=== PATIENT | male | born 1965 | race Caucasian/White ===

== ENCOUNTER 2019-12-25 01:17 | Observation (INO) | payer BC, SELFPAY ==
[2019-12-25] VITALS (12 sets, daily range): BP systolic 140–183; BP diastolic 77–108; PULSE 69–82; RESP 15–20; TEMP 35.7–36.3; O2SAT 95–97; BMI 28.0
--- NOTE | 2019-12-25 | EST_ITS ---
Patient Info Name: Nils Villanueva Age: 54 years : 1965 Gender: Male Ht: 75 in Wt: 224 lbs BSA: 2.33 m2 Exam Date: 12/25/2019 12:03 PM Exam Location: [facility] Stress Patient Status: Inpatient Admit Date: 12/25/2019 Staff Ordering Physician: Sedrick Watson MD Attending Provider: Megan Belle DO Exercise Technologist: Joseph Booth RDCS, RT Exercise Physician: Zachary Pina DO Exam Type: CA stress roxane w NM Study Info A regadenoson stress test was performed. Summary 1. 1. Negative lexiscan stress test for ischemic ST changes by ECG criteria. 2. 2. Baseline hypertension. 3. 3. Nuclear scan to follow and will be reported separately. Please correlate with it. 4. 4. Patient informed of the above results. Protocol: Lexiscan Stress ECG Details Stage: REST Duration (min): 1 min : 25 sec HR (bpm): 79 SBP (mmHg): 159 DBP (mmHg): 91 Stage: REST Duration (min): 8 min : 31 sec HR (bpm): 76 SBP (mmHg): 159 DBP (mmHg): 91 Stage: STAGE 1 Duration (min): 0 min : 59 sec HR (bpm): 96 SBP (mmHg): 162 DBP (mmHg): 98 Stage: RECOVERY Duration (min): 1 min : 0 sec HR (bpm): 98 SBP (mmHg): 162 DBP (mmHg): 98 Stage: RECOVERY Duration (min): 2 min : 0 sec HR (bpm): 93 SBP (mmHg): 162 DBP (mmHg): 98 Stage: RECOVERY Duration (min): 3 min : 0 sec HR (bpm): 89 SBP (mmHg): 154 DBP (mmHg): 75 Stage: RECOVERY Duration (min): 3 min : 20 sec HR (bpm): 90 SBP (mmHg): 154 DBP (mmHg): 75 Rest HR: 76 bpm Peak HR: 104 bpm Rest Sys BP: 159 mmHg Peak Sys BP: 162 mmHg Max Pred HR: 164 bpm % Max Pred HR: 63 % Target HR: 139 bpm Max RPP: 16,848 bpm*mmHg Termination Reason: Completed protocol Cardiac Symptoms: Shortness of breath Total Time: 1 min : 0 sec Rest Whitt BP: 91 mmHg Peak Whitt BP: 98 mmHg Total Dose: 0.4 mg Resting ECG Sinus rhythm. Stress ECG No ST changes. Arrhythmias None. Report Signatures
--- NOTE | ~2019-12-25 | XR_ITS ---
EXAMINATION: XR chest 1V portable DATE: 12/25/2019 02:47 INDICATION: 18 hours of chest pain TECHNIQUE: frontal view of the chest was obtained. COMPARISON: None FINDINGS: The lungs are clear with no focal airspace opacities, pulmonary edema, pleural effusion or pneumothor ax. The cardiomediastinal silhouette is normal. Postoperative change of prior right rotator cuff tear and distal clavicle resection. IMPRESSION: 1. No acute cardiopulmonary disease. Reviewed, dictated and finalized at location A.
--- NOTE | ~2019-12-25 | NM_ITS ---
EXAMINATION: NM roxane stress w perfusion DATE: 12/25/2019 13:05 INDICATION: Chest pain TECHNIQUE: Rest images were obtained following intravenous administration of 9.44 mCi Tc99m tetrofosm in (Myoview). The patient was infused intravenously with Lexiscan (Regadenoson). Then, 28.6 mCi Tc99m tetrofosmin (Myoview) was administered intravenously, and stress images were obtained. Data was genny nstructed into short axis and horizontal and vertical long axis SPECT images. Gated SPECT images were also obtained. COMPARISON: None. FINDINGS: There is no definite reversible or fixed perfusion abnormality to suggest ischemia or infar ction. There is normal left ventricular chamber size, wall motion and ejection fraction. Left ventr icular ejection fraction measures 61%. IMPRESSION: 1. Normal myocardial perfusion at rest and during stress. 2. Left ventricular ejection fraction measuring 61%. Reviewed, dictated and finalized at location A.
--- NOTE | 2019-12-25 01:26 | ECG_ITS ---
Measurements Intervals [place] Rate: 73 P: 53 [place]: 155 QRS: 8 QRSD: 99 T: 31 QT: 357 QTc: 395 Interpretive Statements SINUS RHYTHM BASELINE ARTIFACT- I, II, III, AVR, AVL, AVF, V1 NORMAL ECG Electronically Signed On 12-25-2019 6:46:40 CDT by Zachary Pina D.O.
[2019-12-25] MEDS: ASPIRIN 81 MG CHEWABLE TABLET 324 MG PO (01:33)
--- NOTE | 2019-12-25 01:35 | ED.CHESTPAIN ---
HPI - Chest Pain General Chief Complaint: Chest Pain Stated Complaint: Chest pain Time Seen by Provider: 12/25/19 01:20 Source: patient Mode of arrival: ambulatory Limitations: no limitations History of Present Illness HPI narrative: Patient is a 54-year-old male complaining of chest pain, midsternal, 2 on a time, tightness, nonradiating started today. Denies any shortness of breath, nausea, diaphoresis, abdominal pain or fever. Related Data Allergies Allergy/AdvReac Type Severity Reaction Status Date / Time No Known Allergies Allergy Verified 12/25/19 01:26 Review of Systems Review of Systems: All systems reviewed & are unremarkable except as noted in HPI and below Constitutional: Constitutional: Denies body ache(s), Denies chills, Denies excessive sweating, Denies fatigue, Denies fever(s), Denies headache(s), Denies lethargy, Denies malaise, Denies weakness and Denies weight loss Eyes: Eyes: Denies blurry vision, Denies change in vision and Denies loss of vision ENT: Denies dizziness, Denies ear discharge, Denies headache(s), Denies lip swelling, Denies epistaxis, Denies nasal congestion, Denies neck pain, Denies throat swelling and Denies tongue swelling Cardiovascular: Cardiovascular: Denies diaphoresis, Denies rapid heart rate, Denies edema, Denies irregular heart rhythm, Denies lightheadedness, Denies palpitations, Denies dyspnea and Denies dyspnea on exertion Respiratory: Respiratory: Denies chest congestion, Denies cough, Denies hemoptysis, Denies dyspnea and Denies dyspnea on exertion Gastrointestinal: Gastrointestinal: Denies abdominal pain, Denies melena, Denies hematochezia, Denies diarrhea, Denies nausea, Denies vomiting and Denies hematemesis Musculoskeletal: Musculoskeletal: Denies abnormal gait, Denies deformity, Denies joint swelling, Denies limited range of motion, Denies neck pain and Denies numbness Neurologic: Denies Abnormal speech present, Denies abnormal gait, Denies confusion, Denies dizziness, Denies headache(s), Denies focal weakness, Denies loss of vision, Denies numbness, Denies Other visual disturbances, Denies Sensory deficit (Neuro) and Denies weakness Psychiatric: Psychiatric: Denies confusion, Denies depression, Denies auditory hallucinations, Denies homicidal ideation and Denies suicidal ideation Endocrine: Endocrine: Denies cold intolerance, Denies excessive sweating, Denies fatigue, Denies heat intolerance and Denies palpitations Hematologic/Lymphatic: Hematologic/Lymphatic: Denies easy bleeding and Denies easy bruising Allergic/Immunologic: Allergic/Immunologic: Denies lip swelling, Denies throat swelling and Denies tongue swelling PMFSH Family History Family History Father Diabetes mellitus Hypertension Family history of malignant neoplasm Social History Social History Smoking status: Former smoker Smoking end date: 03/06/15 Exam Const: General: cooperative, healthy appearing, comfortable, no acute distress, well developed, alert and awake; No confusion Orientation/consciousness: oriented to person, oriented to place, oriented to time, patient oriented x3 and No confusion Limitations: no limitations HENMT: Head: normal to inspection, normocephalic and atraumatic Ears: hearing grossly normal bilaterally, TM normal on the right and TM normal on the left General nose exam: Normal external nose present, Normal nares present and No nasal discharge present Face and sinus: normal facial exam Mouth: Yes Normal oral and palatal mucosa present, Yes lip normal, Yes tongue normal and Yes oropharynx normal Throat: posterior oropharynx normal, tonsils normal and uvula midline Eyes: General: appearance normal, both eyes and all related structures Pupils: Equal, round and reactive pupils present EOM: EOMs intact bilaterally Neck: Neck: normal visual inspection, full ROM, no ly
[2019-12-25 01:38] LABS: Basophils Absolute Auto 0.1 K/mm3 (0.0-0.1); Basophils Percent Auto 0.7 % (0.2-1.2); Eosinophils Absolute Auto 0.7 K/mm3 (0-0.3); Eosinophils Percent Auto 6.5 % (0-4.4); Hematocrit 43.5 % (42.0-52.0); Immature Granulocyte Absolute 0.02 K/mm3 (0.00-0.031); Immature Granulocyte Percent A 0.2 % (0-0.5); Lymphocytes Percent Auto 40.9 % (18.3-44.2); Mean Corpuscular HGB Conc 34.5 g/dl (32-36); Mean Corpuscular Hemoglobin 32.1 pg (26-34); Mean Corpuscular Volume 92.9 fl (80-100); Mean Platelet Volume 11.6 fl (7.4-10.4); Monocytes Absolute Auto 0.8 K/mm3 (0.1-0.6); Monocytes Percent Auto 7.4 % (2.6-8.5); Neutrophils Absolute Auto 4.9 K/mm3 (1.3-6.7); Neutrophils Percent Auto 44.3 % (45.5-73.1); Platelet Count Result 236 k/mm3 (150-375); Red Blood Count 4.68 M/mm3 (4.6-6.20); Red Cell Distribution Width 12.9 % (11.5-14.5)
[2019-12-25] MEDS: NITROGLYCERIN OINTMENT 1 INCH DOSE TRANSDERM (01:38)
--- NOTE | 2019-12-25 01:43 | PC.NURSE ---
Report given to TONY Jackson
[2019-12-25 01:48] LABS: INR 0.9; Partial Thromboplastin Time 26.5 SECONDS (22.3-36.8); Prothrombin Time 11.8 Seconds (11.1-14.7)
[2019-12-25 01:50] LABS: Alanine Aminotransferase 36 U/L (4-50); Albumin Level 4.3 g/dL (3.5-5.1); Alkaline Phosphatase 52 U/L (38-126); Anion Gap 10 mmol/L (8-16); Aspartate Amino Transferase 42 U/L (17-59); Bilirubin,Total 0.4 mg/dL (0.2-1.3); Blood Urea Nitrogen 19 mg/dL (9-20); Calcium 9.3 mg/dL (8.4-10.2); Carbon Dioxide 25 mmol/L (22-30); Chloride 104 mmol/L (98-107); Estimated Glomerular Filt Rate > 60; Glucose 114 mg/dL (75-110); Potassium 4.1 mmol/L (3.4-5.0); Sodium 139 mmol/L (137-145)
[2019-12-25 01:56] LABS: Atypical Lymphocytes Present; Platelet Estimate Adequate (Adequate)
[2019-12-25 01:59] LABS: NT Pro B Type Natriuretic Pept 26 PG/ML (5-100)
[2019-12-25 02:03] LABS: Troponin I < 0.012 ng/mL (0.000-0.034)
[2019-12-25] MEDS: hydrALAZINE HCL 20 MG/ML VIAL 10 MG IV PUSH (03:51)
--- NOTE | 2019-12-25 03:51 | PC.NURSE ---
This patient, Nils Villanueva, was admitted to IMU Room 214-01 on 12/25/19 at 0320. Patient/family oriented to hospital policies and general routines including ID bracelet, bed and alarms, visiting hours, pain management, procedures, bathroom and other care routines, personal items, smoking policy, room service/diet, and visiting hours. Information on how to activate the Rapid Response Team has been discussed. Patient/Family are encouraged to report perceived risks to care and to ask questions if they do not understand what they are told or what they should do.
[2019-12-25] MEDS: NITROGLYCERIN SL 0.4 MG TABLET SUBLINGUAL (05:00)
--- NOTE | 2019-12-25 05:09 | PM.IMHP ---
H&P: HPI History of Present Illness Date/Time: 12/25/19 05:09 Chief complaint: CHEST PAIN Narrative: Nils Villanueva is a 54 year old male hypertension, history of nicotine abuse, hyperlipidemia, GERD presents ED with complaints of chest pressure. the symptoms started on Monday morning around 9:00 a.m. 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 The symptoms have not resolved and the pressure is a constant smoldering. He has never had a stress test before. He was on Wellbutrin to quit smoking, quit 3 years ago and continued to take the Wellbutrin. he denies any chest trauma, cough, fevers, chills, nausea, vomiting, diarrhea. He denies any sick contacts or recent travels. In the ED: Vital signs stable, lab work within normal limits, EKG: Normal sinus rhythm rate [address] changes. patient admitted for observation for chest pain. Review of Systems Review of Systems: Narrative: Constitutional: No Fever, No Chills, No Night Sweats, No Fatigue ENT/Mouth: No Hearing Changes, No Ear Pain, No Nasal Congestion, No Sinus Pain, No Hoarseness, No sore throat, No Rhinorrhea, No Swallowing Difficulty Eyes: No Eye Pain, No Redness, No Vision Changes Cardiovascular: No Palpitations, No Dyspnea on Exertion, No Orthopnea, No Claudication, No Edema. Endorses chest pressure/pain/ heaviness Respiratory: No Cough, No Sputum, No Wheezing, No Shortness of Breath Gastrointestinal: No Nausea, No Vomiting, No Diarrhea, No Constipation, No Abdominal Pain, No Heartburn, No Hematochezia, No Melena Genitourinary: No Dysuria, No Urinary Frequency, No Hematuria, No Urinary Incontinence, No Urgency Musculoskeletal: No Arthralgias, No Myalgias, No Joint Swelling, No Joint Stiffness, No Back Pain Skin: No Skin Lesions, No Pruritis, No Hair Changes Neuro: No Weakness, No Numbness, No Paresthesias, No Loss of Consciousness, No Syncope, No Dizziness, No Headache Psych: No Anxiety/Panic, No Depression, No Insomnia Heme: No Bruising, No Bleeding Lymph: No Adenopathy Endocrine: No Polyuria, No Polydipsia, No Temperature Intolerance [facility] Past Medical History Medical History (Updated 12/25/19 @ 05:53 by Megan Belle DO) GERD (gastroesophageal reflux disease) HTN (hypertension) Hyperlipidemia Nicotine dependence in remission Family History Family History Father Diabetes mellitus Hypertension Family history of malignant neoplasm Social History Social History Smoking packs per day: 1.5 Smoking cigarettes per day: 30.0 Years smoked: 30 Smoking pack-years: 45.00 Smoking status: Former smoker Tobacco type: cigarettes Smoking end date: 03/06/15 Alcohol intake: current Drinks per week: 12 Substance use: never Spiritual care concerns: No Meds Home Medications and Allergies Home Medications Medication Instructions Recorded Confirmed Type Adult Multivitamin Extra VitD3 See Rx Instructions .ROUTE .COMPLEX 12/25/19 12/25/19 History aspirin [Adult Aspirin] 81 mg PO DAILY 12/25/19 12/25/19 History atorvastatin 20 mg PO DAILY 12/25/19 12/25/19 History bupropion HCl 300 mg PO DAILY 12/25/19 12/25/19 History lisinopril 40 mg PO DAILY 12/25/19 12/25/19 History pantoprazole 20 mg PO DAILY 12/25/19 12/25/19 History testosterone cypionate See Rx Instructions .ROUTE .COMPLEX 12/25/19 12/25/19 History Allergies Allergy/AdvReac Type Severity Reaction Status Date / Time No Known Allergies Allergy Verified 12/25/19 01:26 Vital Signs Vital Signs - 24 hr 12/25/19 01:20 12/25/19 01:41 12/25/19 02:00 Temperature 36.3 C L Pulse Rate 73 69 69 Respiratory Rate 17 15 Blood Pressure 183/107 H 151/96 H Pulse Oximetry 97 96 12/25/19 02:30 12/25/19 03:20 12/25/19 03:56 Temperature 35.7 C L Pulse Rate 70 72 72 Respiratory Rate 16 18
[2019-12-25 05:12] LABS: Cholesterol 151 mg/dL (0-200); HDL Direct 39 mg/dL; Triglycerides 223 mg/dL (<150)
[2019-12-25 05:23] LABS: LDL Cholesterol Direct 75 mg/dL
[2019-12-25 05:24] LABS: Troponin I < 0.012 ng/mL (0.000-0.034)
[2019-12-25 08:30] LABS: Troponin I < 0.012 ng/mL (0.000-0.034)
--- NOTE | 2019-12-25 12:03 | PC.NURSE ---
1145- to [facility] for [place]
[2019-12-25] MEDS: buPROPion HCL XL (24 HR) 150 MG TABCR 300 MG PO (13:06)
[2019-12-25] MEDS: lisinopriL 20 MG TABLET 40 MG PO (13:08)
[2019-12-25] MEDS: ASPIRIN 81 MG CHEWABLE TABLET PO (13:08)
[2019-12-25] MEDS: ATORVASTATIN 20 MG TABLET PO (13:08)
[2019-12-25] MEDS: PANTOPRAZOLE SOD SESQUIHYDRATE 20 MG TAB PO (13:09)
--- NOTE | 2019-12-25 18:43 | PM.DS ---
DS: Admitting Diagnosis Admitting Diagnosis Admitting Diagnosis: CHEST PAIN DS: Discharge Diagnosis Discharge Diagnosis (1) Chest pain: Qualifiers: Chest pain type: unspecified Qualified Code(s): R07.9 - Chest pain, unspecified Code(s): R07.9 - Chest pain, unspecified Status: Acute Assessment and Plan: - atypical chest pain, nonexertional - aspirin given in ED - lipid panel LDL only 75 - troponins x2 negative, EKG shows normal sinus rhythm - JACEY score 2, HEART score 3 - nitroglycerin SL q5min prn chest pain on discharge with negative sestamibi stress test - patient has knee issues and could not walk for exercise stress, he has never had a stress test in the past, Lexiscan stress test today revealed no ischemia and normal ejection fraction with no wall motion abnormalities (2) Left knee DJD: Qualifiers: Osteoarthritis type: primary Qualified Code(s): M17.12 - Unilateral primary osteoarthritis, left knee Code(s): M17.12 - Unilateral primary osteoarthritis, left knee Status: Acute Assessment and Plan: cannot participate in exercise stress (3) Pes anserine bursitis: Code(s): M70.50 - Other bursitis of knee, unspecified knee Status: Acute (4) Hyperlipidemia: Qualifiers: Hyperlipidemia type: mixed hyperlipidemia Qualified Code(s): E78.2 - Mixed hyperlipidemia Code(s): E78.5 - Hyperlipidemia, unspecified Status: Acute Assessment and Plan: continue home statin and as above LDL only 75 (5) HTN (hypertension): Qualifiers: Hypertension type: essential hypertension Qualified Code(s): I10 - Essential (primary) hypertension Code(s): I10 - Essential (primary) hypertension Status: Acute Assessment and Plan: continue home lisinopril, blood pressure at stress test slightly elevated this a.m. but had no a.m. lisinopril (6) Nicotine dependence in remission: Qualifiers: Nicotine product type: cigarettes Qualified Code(s): F17.211 - Nicotine dependence, cigarettes, in remission Code(s): F17.201 - Nicotine dependence, unspecified, in remission Status: Acute Assessment and Plan: patient continued Wellbutrin after stopping smoking 3 years ago, will continue Wellbutrin DS: Summary Hospital Course Hospital Course: 54-year-old hypertensive male with hyperlipidemia and past history of smoking presented to ER with substernal chest pressure and no no associated symptoms. Pain was not exertional and lasted most of the day prior to admission. able to go sleep but when he awoke with the pain again came to the hospital for evaluation. Serial EKGs and enzymes failed to reveal any myocardial damage. Lexiscan stress test revealed no ischemia and normal ejection fraction he was giving p.r.n. nitroglycerin for home and instructed if he continues to have repeated episodes should follow up primary care for further evaluation otherwise activity as tolerated Time Spent with Patient Time attestation: Total time spent providing and/or coordinating discharge services: 35 minutes Exam Narrative: Exam Narrative: condition on discharge blood pressure 160/90 pulse is 80 without his blood pressure medications this a.m. lungs clear CV regular rate rhythm no murmur abdomen soft nontender no masses extremities without edema good distal pulses no chest wall pain patient was up in about no further chest discomfort and stable able to be discharged home after negative stress test DS: Data Data Completed and Pending Labs on day of discharge: Labs from last 24 hours 12/25/19 12/25/19 12/25/19 07:39 04:40 04:40 WBC RBC Hgb Hct MCV MCH MCHC RDW Plt Count MPV Immature Gran % (Auto) Neut % (Auto) Lymph % (Auto) [place] % (Auto) Eos % (Auto) Baso % (Auto) Lymph # (Auto) [place]oup # (Auto) Eos # (Auto) Baso # (Auto)
== END 2019-12-25 15:25 | disposition home or self-care (01) ==
LOC: ANHED 02:36 → ANHIMU 09:02
PROVIDERS: Admitting Provider Student in an Organized Health Care Education/Training Program; Emergency Provider Emergency Medicine; PCP Anesthesiology; Visit Provider Internal Medicine
DX: R07.9 Chest pain, unspecified (principal); I10 Essential (primary) hypertension; K21.9 Gastro-esophageal reflux disease without esophagitis; F17.211 Nicotine dependence, cigarettes, in remission; M17.12 Unilateral primary osteoarthritis, left knee; M70.50 Other bursitis of knee, unspecified knee; E78.2 Mixed hyperlipidemia
CPT/HCPCS: 36415; 71045; 78452; 80053; 80061; 83880; 84484; 85025; 85610; 85730; 93005; 93017; 96374; 99285; A9270; A9502; G0378; J0360; J2785

== ENCOUNTER 2024-12-26 12:40 | Outpatient (CLI) | payer BC, SELFPAY ==
--- NOTE | 2024-12-26 | ECG_ITS ---
Test Date: 2024-12-26 13:03:15 Measurements Intervals [place] Rate: 70 P: 54 [place]: 178 QRS: 12 QRSD: 103 T: 52 QT: 373 QTc: 404 Interpretive Statements SINUS RHYTHM CONSIDER RIGHT VENTRICULAR CONDUCTION DELAY BASELINE ARTIFACT- AVF BORDERLINE ECG No previous ECG available for comparison Electronically Signed On 12-26-2024 13:05:39 CDT by Zachary Pina D.O.
--- OUTSIDE RECORDS SUMMARY | 2024-12-26 13:31 | XMS_ITS | Encounter Summary ---
Author Organization [facility] Address [address] [place] [address] Care Team Providers Care Golf Ball Cover Treater Name Role Phone Jasper Overton [facility] Primary Care Provider U Jesse Carvajal DO Primary Care Provider + Reason for Visit * Reason Comments Refill Request Encounter Details Date Type Department Care Team (Late st Contact Info) Description 09/06/2023 Refill [facility] SURGERY [address] [place] [id number] Irais Carter MD [address] [place] [address] Refill Request Social History Tobacco Use Types Packs/Day Years Used Date Smoking Tobacco: Some Days Cigarettes Last attempted to quit: 08/04/2017 Smokeless Tobacco: Never Alcohol Use Standard Drinks/Week Comments Yes 0 (1 standard drink = 0.6 oz pur e alcohol) socially AUDIT-C Answer Date Recorded Q1: How often do you have a drink containing alc ohol? 2-3 times a week 08/09/2023 Q2: How many drinks containi ng alcohol do you have on a typical day when you are drinking? 3 or 4 08/09/2023 Q3: How often do you have si x or more drinks on one occasion? Never 08/09/2023 Overall Financial Resource Strain (CARDIA) Ronie r Date Recorded How hard is it for you to pa y for the very basics like food, housing, medical care, and heating? Not hard at all 08/09/2023 [place] [employer] [employer] [employer] [facility] - Occupational Stress Questionnaire Answer Date Recorded Do you feel stress - tense, restless, nervous, or anxious, or unable to sleep at night because your mind is troubled all the time - these days? Not at all 08/09/2023 Hunger Vital Sign Answer Date Recorded Within the past 12 months, y ou worried that your food would run out before you got the money to buy more. Never true 08/09/19 24 Within the past 12 months, t he food you bought just didn't last and you didn't have money to get more. Never true 08/09/2023 PRAPARE - Transportation Answer Date Re corded In the past 12 months, has l ack of transportation kept you from medical appointments or from getting medications? No 07/2023 In the past 12 months, has l ack of transportation kept you from meetings, work, or from getting things needed for daily living? No 08/09/2023 Housing Stability Vital Sign Answer Abdoulaye e Recorded In the last 12 months, was t here a time when you were not able to pay the mortgage or rent on time? No 08/09/2023 In the last 12 months, how many places have you lived? 1 08/09/2023 In the last 12 months, was t here a time when you did not have a steady place to sleep or slept in a alf (including now)? No 08/09/2023 Sex and Gender Information Value Date Recorded Sex Assigned at Not on file Legal Sex Male 5:25 AM [employer]IC[employer]ION [employer]ENT Gender Identity Not on file Sexual Orientation Not on file documented as of this encounter Functional Status * Is person deaf or have serious hearing difficulty? Answer Date of Assessment Author No 08/09/2023 6:23 AM Jon Gillespie RN * Is person blind or have serious difficulty seeing? Answer Date of Assessment Author No 08/09/2023 6:23 AM Jon Gillespie RN * Does person have serious difficulty walking/climbing stairs? Answer Date of Assessment Author No 08/09/2023 6:23 AM Jon Gillespie RN * Does person have difficulty dressing/bathing? Answer Date of Assessment Author No 08/09/2023 6:23 AM Jon Gillespie RN * Does person have difficulty doing errands alone? Answer Date of Assessment Author No 08/09/2023 6:23 AM CDT Jon Galvez RN documented as of this encounter Mental Status * Does person have difficulty concentrating/remembering/making decisions? Answer Entry Date Author No 08/09/2023 6:23 AM CICIT Jon Galvez RN documented in this encounter Plan of Treatment Upcoming Encounters Date Type Department Care Team (Late st Contact Info) Description 12/31/2024 10:34 AM CDT Hospital Encounter [facility] [address] [place] [address] To Mosqueda MD [address] [place] [address] [place] [address] Surgery General 12/31/2024 10:34 AM CDT - 12/31/2024 1:12 PM CDT Surgery [facility] [address] [place] [address] To Mosqueda MD [address] [place] [address] [place] [address] ARTHROPLASTY TOTAL SHOULDER (REVERSE) 01/29/2025 1:30 PM [employer]ION AGENT Office Visit [facility] - Orthopedics [address] [place] [address], [place] [phone] To Mosqueda MD [address] [place] [address] [place] [address] Scheduled Procedures Name Priority Associated Diagnoses Date/Ti me ARTHROPLASTY TOTAL SHOULDER (REVERSE) 12/31/2024 10:34 AM CDT documented as of this encounter Visit Diagnoses Not on filedocumented in this encounter Care Teams Golf Ball Cover Treater Relationship Specialty Start Date End Date Jasper Overton [facility] PCP - General 08/31/23 09/11/23 Jesse Feliciano DO [address] [place] [id number] PCP - General Family Medicine Geriatric Medicine 09/12/23 documented as of this encounter
--- OUTSIDE RECORDS SUMMARY | 2024-12-26 13:31 | XMS_ITS | Encounter Summary ---
Author Organization [facility] Address [address] [place] [address] Care Team Providers Care Pug Mill Operator Helper Name Role Phone Jodie Jesse Roman Primary Care Provider + Reason for Referral * OP/Amb RFL Auth (Routine) - Authorized Specialty Diagnoses / Procedures Referred By Contac t Referred To Contact Diagnoses Rotator cuff arthropathy of right shoulder Procedures EKG 12-Lead To Mosqueda MD [address] [place] [address] [place] [address] Phone: tel: fax: Referral ID Status Reason Start Date Expiration Date V isits Requested Visits Authorized [id number] Authorized 12/25/2024 12/25/2025 1 1 Encounter Details Date Type Department Care Team (Late st Contact Info) Description 12/25/2024 Orders Only [facility] - Orthopedics [address] [place] [address], [place] [phone] To Mosqueda MD [address] [place] [address] [place] [address] Rotator cuff arthropathy of right shoulder Social History Tobacco Use Types Packs/Day Years Used Date Smoking Tobacco: Some Days Cigarettes Smokeless Tobacco: Never Alcohol Use Standard Drinks/Week Comments Yes 0 (1 standard drink = 0.6 oz pur e alcohol) socially AUDIT-C Answer Date Recorded Q1: How often do you have a drink containing alc ohol? 2-4 times a month 07/02/2024 Q2: How many drinks containi ng alcohol do you have on a typical day when you are drinking? 3 or 4 07/02/2024 Q3: How often do you have si x or more drinks on one occasion? Less than monthly 07/02/2024 Overall Financial Resource Strain (CARDIA) Answe r Date Recorded How hard is it for you to pa y for the very basics like food, housing, medical care, and heating? Not hard at all 08/09/2023 PHQ-2 Answer Date Recorded Patient Health Questionnaire-2 Score 0 12/04/2024 [facility] of Occupat ional Health - Occupational Stress [...] place to sleep or slept in a correction (including now)? 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 Answer Date of Assessment Author No 07/02/2024 11:02 AM CICIT Jon Carrion RN * Is person blind or have serious difficulty seeing? Answer Date of Assessment Author No 07/02/2024 11:02 AM CICIT Jon Carrion RN * Does person have serious difficulty walking/climbing stairs? Answer Date of Assessment Author No 07/02/2024 11:02 AM CICIT Jon Carrion RN * Does person have difficulty dressing/bathing? Answer Date of Assessment Author No 07/02/2024 11:02 AM CICIT Jon Carrion RN * Does person have difficulty doing errands alone? Answer Date of Assessment Author No 07/02/2024 11:02 AM Jon [place] RN documented as of this encounter Mental Status * Does person have difficulty concentrating/remembering/making decisions? Answer Entry Date Author No 07/02/2024 11:02 AM Jon [place] RN documented in this encounter Plan of Treatment Upcoming Encounters Date Type Department Care Team (Late st Contact Info) Description 12/31/2024 10:34 AM CDT Hospital Encounter [facility] Op [address] [place] [address] To Mosqueda MD [address] [place] [address] [place] [address] Surgery General 12/31/2024 10:34 AM CDT - 12/31/2024 1:12 PM CDT Surgery [facility] [address] [place] [address] To Mosqueda MD [address] [place] [address] [place] [address] ARTHROPLASTY TOTAL SHOULDER (REVERSE) 01/29/2025 1:30 PM WASTEWATER ENGINEER Office Visit [facility] - Orthopedics [address] [place] [address], [facility] [phone] To Mosqueda MD [address] [place] [address] DIV OF [place] [address] Scheduled Orders Name Type Priority Associated Diagnoses Orde r Schedule EKG 12-Lead ECG Routine Rotator cuff arthropathy of right shoulder 1 Occurrences starting 12/25/2024 until 12/25/2025 Scheduled Procedures Name Priority Associated Diagnoses Date/Ti me ARTHROPLASTY TOTAL SHOULDER (REVERSE) 12/31/2024 10:34 AM CDT documented as of this encounter Goals Goal Patient Goal Type Associated Problems Recent Progress Patient-Stated? Author Mobility General No Nakita Mohan, RN Note: Expected end date: 01/04/2025 The goal is to maintain or improve your mobility at the optimum level for you. Interventions: Plan activities to conserve energy documented as of this encounter Visit Diagnoses Diagnosis Rotator cuff arthropathy of right shoulder- Primary documented in this encounter Care Teams Pug Mill Operator Helper Relationship Specialty Start Date End Date Jesse Feliciano DO [address] [place] [id number] PCP - General Family Medicine Geriatric Medicine 09/12/23 documented as of this encounter
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
--- OUTSIDE RECORDS SUMMARY | 2024-12-26 13:31 | XMS_ITS | Encounter Summary ---
Author Organization [facility] Address [address] [place] [address] Care Team Providers Care Eviscerator Name Role Phone Jasper Overton [facility] Primary Care Provider U Jesse Carvajal DO Primary Care Provider + Reason for Visit * Reason Comments Refill Request Encounter Details Date Type Department Care Team (Late st Contact Info) Description 09/02/2023 Refill [facility] SURGERY [address] [place] [phone] Irais Carter MD [address] [place] [address] Refill Request Social History Tobacco Use Types [...] and heating? Not hard at all 08/09/2023 [facility] - Occupational Stress [...] place to sleep or slept in a snf (including now)? 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 Gender Identity Not on file Sexual [...] Description 12/31/2024 10:34 AM CDT Hospital Encounter [facility] Op [address] [place] [address] To Mosqueda MD [address] [place] [address] [place] [address] Surgery General 12/31/2024 10:34 AM CDT - 12/31/2024 1:12 PM CDT Surgery [facility] Op [address] [place] [address] To Mosqueda MD [address] [place] [address] [place] [address] ARTHROPLASTY TOTAL SHOULDER (REVERSE) 01/29/2025 1:30 PM ROLL UP GUIDER OPERATOR Office Visit [facility] - Orthopedics [address] [place] [address], [facility] [place] [phone] To Mosqueda MD [address] [place] [address] [place] [address] Scheduled Procedures Name Priority Associated Diagnoses Date/Ti me ARTHROPLASTY TOTAL SHOULDER (REVERSE) 12/31/2024 10:34 AM CDT documented as of this encounter Visit Diagnoses Not on filedocumented in this encounter Care Teams Eviscerator Relationship Specialty Start Date End Date Jasper Overton [facility] PCP - General 08/31/23 09/11/23 Jesse Feliciano DO [address] [place] [id number] PCP - General Family Medicine Geriatric Medicine 09/12/23 documented as of this encounter
--- OUTSIDE RECORDS SUMMARY | 2024-12-26 13:31 | XMS_ITS | Encounter Summary ---
Author Organization [facility] Address [address] [place] [address] Care Team Providers Care Camera Control Operator Name Role Phone Jesse Feliciano Jessie HOLLOWAY Primary Care Provider + Reason for Visit * Reason Comments Refill Request Encounter Details Date Type Department Care Team (Late st Contact Info) Description 11/20/2023 Refill [facility] [place] PHYS SURGERY [address] [place] [phone] Irais Carter MD [address] [place] [address] Refill Request Social History Tobacco Use Types [...] Never 08/09/2023 Overall Financial Resource Strain (CARDIA) Answe r Date Recorded How hard is it for you to pa y for the very basics like food, housing, medical care, and heating? Not hard at all 08/09/2023 [facility] Occupat ional Health - Occupational Stress [...] place to sleep or slept in a assisted (including now)? 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 Op [address] [place] [address] To Mosqueda MD [address] [place] [address] [place] [address] ARTHROPLASTY TOTAL SHOULDER (REVERSE) 01/29/2025 1:30 PM SEAMING INSPECTOR Office Visit [facility] - Orthopedics [address] [place] [address], [place] [phone] To Mosqueda MD [address] [place] [address] [place] [address] Scheduled Procedures Name Priority Associated Diagnoses Date/Ti me ARTHROPLASTY TOTAL SHOULDER (REVERSE) 12/31/2024 10:34 AM CDT documented as of this encounter Visit Diagnoses Not on filedocumented in this encounter Care Teams Camera Control Operator Relationship Specialty Start Date End Date Jsese Feliciano DO [facility] [place] [address] PCP - General Family Medicine Geriatric Medicine 09/12/23 documented as of this encounter
== END 2024-12-26 12:41 | disposition home or self-care (01) ==
LOC: ANHCARD 12:45
PROVIDERS: PCP Anesthesiology; Visit Provider Orthopaedic Surgery Sports Medicine
DX: M12.811 Other specific arthropathies, not elsewhere classified, right shoulder (principal)
CPT/HCPCS: 93005